=== PATIENT | male | born 1965 | race Caucasian/White ===

== ENCOUNTER 2017-11-03 15:58 | Emergency (ER) | payer SELFPAY ==
--- NOTE | 2017-11-03 16:28 | EDM.PDOC ---
ED HPI GENERAL MEDICAL PROBLEM - General Chief Complaint: General Stated Complaint: HIGH BLOOD Time Seen by Provider: 11/03/17 16:20 Source of Information: Reports: Patient History Limitations: Reports: No Limitations - History of Present Illness INITIAL COMMENTS - FREE TEXT/NARRATIVE: This patient is a 51 year old male that presents to the ER. Patient reports that for about 1 week having lightheadedness with standing. He reports his reason for ER visit is started last night with pressure in his head. He reports starts in the front and is generalized to top and to back of the head. The patient reports that he has had this before. He reports when he gets these, his BP is usually elevated. Patient reports taking his BP at home and it was 180/ 100. Patient arrives here, BP stable. The patient denies n, v, d, f, congestion , drainage, cough, neck pain, neck stiffness, vision changes, head injury, cp, soa, abd pain, urinary/bowel changes, rashes, edema. Patient denies unilateral weaknesses. Stroke score is 0. GCS is 15. Patient had increased in his BP meds about 2 weeks ago with PCP per patient. Onset Date: 11/02/17 Location: Reports: Head Quality: Reports: Pressure Severity: Mild Improves with: Reports: None Worsens with: Reports: None Associated Symptoms: Reports: Headaches. Denies: Confusion, Chest Pain, Cough, cough w sputum, Diaphoresis, Fever/Chills, Loss of Appetite, Malaise, Nausea/ Vomiting, Rash, Seizure, Shortness of Breath, Syncope, Weakness - Related Data Allergies Allergy/AdvReac Type Severity Reaction Status Date / Time No Known Allergies Allergy Verified 11/03/17 16:21 Home Meds: Home Meds Cetirizine [ZyrTEC] 10 mg PO DAILY 11/03/17 [History] Losartan Potassium [Cozaar] 100 mg PO DAILY 11/03/17 [History] atorvaSTATin [Lipitor] 40 mg PO BEDTIME 11/03/17 [History] metFORMIN HCl [Metformin HCl ER] 1,000 mg PO DAILY 11/03/17 [History] ED ROS GENERAL - Review of Systems Review Of Systems: See Below Constitutional: Reports: No Symptoms HEENT: Reports: No Symptoms. Denies: Sinus Problem Respiratory: Reports: No Symptoms. Denies: Shortness of Breath Cardiovascular: Reports: Blood Pressure Problem ("I usually get this pressure in my head when my blood pressure is up."), Lightheadedness (with standing. ). Denies: Chest Pain, Edema, Syncope Endocrine: Reports: No Symptoms GI/Abdominal: Reports: No Symptoms : Reports: No Symptoms Musculoskeletal: Reports: No Symptoms Skin: Reports: No Symptoms Neurological: Reports: Headache. Denies: Confusion, Dizziness, Numbness, Seizure, Syncope, Tingling, Tremors, Trouble Speaking, Difficulty Walking, Weakness, Change in Speech, Gait Disturbance Psychiatric: Reports: No Symptoms Hematologic/Lymphatic: Reports: No Symptoms Immunologic: Reports: No Symptoms ED EXAM, GENERAL - Physical Exam Exam: See Below Exam Limited By: No Limitations General Appearance: Alert, WD/WN, No Apparent Distress Eye Exam: Bilateral Eye: Normal Inspection, PERRL Ears: Normal External Exam, Normal Canal, Hearing Grossly Normal, Normal TMs Ear Exam: Bilateral Ear: Auricle Normal, Canal Normal, TM normal Nose: Normal Inspection, Normal Mucosa, No Blood Throat/Mouth: Normal Inspection, Normal Lips, Normal Teeth, Normal Gums, Normal Oropharynx, Normal Voice, No Airway Compromise Head: Atraumatic, Normocephalic Neck: Normal Inspection, Supple, Non-Tender, Full Range of Motion Respiratory/Chest: No Respiratory Distress, Lungs Clear, Normal Breath Sounds, No Accessory Muscle Use Cardiovascular: Normal Peripheral Pulses, Regular Rate, Rhythm, No Edema, No Gallop, No JVD, No Murmur, No Rub Peripheral Pulses: 2+: Carotid (L), Carotid (R), Radial (L), Radial (R), Posterior Tibial (L), Posterior Tibial (R) GI/Abdominal: Soft, Non-Tender, No Organomegaly, No Distention, No Abnormal Bruit, No Mass, Pelvis Stable (Male) Exam: Deferred Rectal (Males) Exam: Deferred Back Exam: Normal Inspection, Full Range of Motion Extremities: Normal Inspection, Normal Range of Motion, Non-Tender, No Pedal Edema, Normal Capillary Refill Neurological: Alert, Oriented, CN II-XII Intact, Normal Cognition, Normal Gait, No Motor/Sensory Deficits Psychiatric: Normal Affect, Normal Mood Skin Exam: Warm, Dry, Intact, Normal Color, No Rash Lymphatic: No Adenopathy EKG INTERPRETATION EKG Date: 11/03/17 Time: 16:16 Rhythm: NSR Rate (Beats/Min): 87 [place]: Normal P-Wave: Present QRS: Normal ST-T: Normal QT: Normal Comparison: NA - No Prior EKG Course - Vital Signs Last Recorded V/S: Last Vital Signs Temp 98.5 F 11/03/17 16:01 Pulse 88 11/03/17 16:01 Resp 18 11/03/17 16:01 BP 143/83 H 11/03/17 16:01 Pulse Ox 96 11/03/17 16:01 Orthostatic Blood Pressure [ 149/99 Standing] Orthostatic Blood Pressure [ 138/87 Sitting] Orthostatic Blood Pressure [ 145/96 Supine] - Orders/Labs/Meds Orders: Active Orders 24 hr Category Date Time Status Orthostatic Vital Signs [RC] ASDIRECTED Care 11/03/17 16:28 Active Head wo Cont [CT] Stat Exams 11/03/17 16:25 Taken Sodium Chloride 0.9% [Normal Saline] 1,000 ml Med 11/03/17 16:53 Active IV .BOLUS Medication Orders Sodium Chloride (Normal Saline) 1,000 mls @ 999 mls/hr IV .BOLUS ONE Stop: 11/03/17 17:53 Last Admin: 11/03/17 17:07 Dose: 999 mls/hr Labs: Laboratory Tests 11/03/17 11/03/17 11/03/17 Range/Units 16:25 16:25 16:25 WBC 6.9 (5.0-10.0) 10^3/uL RBC 5.22 (4.50-6.00) 10^6/uL Hgb 14.7 (14.0-18.0) g/dL Hct 43.3 (40.0-54.0) % MCV 83.0 (82.0-94.0) fL MCH 28.2 (27.0-32.0) pg MCHC 33.9 (33.0-38.0) g/dL RDW Coeff of Kim 12.7 (11.0-15.0) % Plt Count 201 (150-400) 10^3/uL Neut % (Auto) 62.3 (35-85) % Lymph % (Auto) 28.7 (10-55) % [place] % (Auto) 7.3 (0-16) % Eos % (Auto) 1.6 (0-5) % Baso % (Auto) 0.1 (0-3) % Neut # (Auto) 4.29 (1.80-7.00) 10^3/uL Lymph # (Auto) 1.98 (1.00-4.80) 10^3/uL [place] # (Auto) 0.50 (0.00-0.80) 10^3/uL Eos # (Auto) 0.11 (0.00-0.45) 10^3/uL Baso # (Auto) 0.01 10^3/uL Sodium 144 (136-145) mEq/L Potassium 4.2 (3.5-5.0) mEq/L Chloride 105 (98-106) mEq/L Carbon Dioxide 27 (21-32) mmol/L BUN 15 (7-18) mg/dL Creatinine 1.2 (0.7-1.3) mg/dL Est Cr Clr Drug Dosing 70.46 mL/min Estimated GFR (MDRD) > 60 (>=60) mL/min Glucose 102 H D (75-99) mg/dL Calcium 9.8 (8.4-10.1) mg/dL Total Bilirubin 0.5 (0.0-1.0) mg/dL AST 40 H (15-37) U/L ALT 75 (12-78) U/L Alkaline Phosphatase 33 L (46-116) U/L Creatine Kinase 130 (35-232) U/L Troponin I < 0.017 (0.00-0.06) ng/mL Total Protein 7.2 (6.4-8.2) g/dL Albumin 3.8 (3.4-5.0) g/dL Urine Color Yellow (YELLOW) Urine Appearance Clear (CLEAR) Urine pH 7.0 (4.5-8.0) Ur Specific [place] 1.020 (1.003-1.020) Urine Protein Negative (NEGATIVE) mg/dL Urine Glucose (UA) Negative (NEGATIVE) mg/dL Urine Ketones Negative (NEGATIVE) mg/dL Urine Occult Blood Negative (NEGATIVE) Urine Nitrite Negative (NEGATIVE) Urine Bilirubin Negative (NEGATIVE) Urine Urobilinogen 1.0 (0.2-1.0) EU/dL Ur Leukocyte Esterase Negative (NEGATIVE) Urine RBC Not seen (0-5) /HPF Urine WBC Not seen (0-5) /HPF Meds: Medications Generic Name Dose Route Start Last Admin Trade Name Donna PRN Reason Stop Dose Admin Sodium Chloride 1,000 mls @ 999 mls/hr 11/03/17 16:53 11/03/17 17:07 Normal Saline IV 11/03/17 17:53 999 mls/hr .BOLUS ONE Administration - Radiology Interpretation Free Text/Narrative:: Head Ct: Negative. No acute findings. CT Results Date: 11/03/17 CT Results Time: 17:01 Departure - Departure Time of Disposition: 17:04 Disposition: Home, Self-Care 01 Condition: Fair Clinical Impression: Lightheaded Headache Qualifiers: Headache type: other headache syndrome Qualified Code(s): G44.89 - Other headache syndrome - Discharge Information Instructions: General Headache Without Cause, Dehydration, Adult, [id number] Forms: ED Department Discharge Additional Instructions: Followup with your primary care provider Return to the ER for worsening of condition or any emergent concerns Increase fluids Stay out of heat Tylenol for headache - My Orders Last 24 Hours: My Active Orders 11/03/17 16:25 Head wo Cont [CT] Stat 11/03/17 16:28 Orthostatic Vital Signs [RC] ASDIRECTED 11/03/17 16:53 Sodium Chloride 0.9% [Normal Saline] 1,000 ml IV .BOLUS - Assessment/Plan Last 24 Hours: My Active Orders 11/03/17 16:25 Head wo Cont [CT] Stat 11/03/17 16:28 Orthostatic Vital Signs [RC] ASDIRECTED 11/03/17 16:53 Sodium Chloride 0.9% [Normal Saline] 1,000 ml IV .BOLUS Plan: PLEASE SEE RN NOTE FOR PFSH.
[2017-11-03] MEDS ORDERED: Sodium Chloride 0.9% 1,000 ML IV ONE (16:53)
[2017-11-03 17:03] LABS: CHLORIDE,CL 105 mEq/L (98-106); SODIUM,NA 144 mEq/L (136-145)
== END 2017-11-03 18:40 | disposition home or self-care (01) ==
LOC: CC.ED 15:58
DX: G44.89 Other headache syndrome (principal); R42 Dizziness and giddiness; Z79.899 Other long term (current) drug therapy
CPT/HCPCS: 36415; 70450; 80053; 81001; 82550; 84484; 85025; 96360; 99284; J7030

== ENCOUNTER 2019-11-21 22:32 | Emergency (ER) | payer SELFPAY ==
[2019-11-21] MEDS ORDERED: Aspirin 81 MG Tab.Chew PO ONE (22:46)
[2019-11-21] MEDS: Nitroglycerin 0.4 MG Tab.SL SL PRN ×2 (22:52→23:13)
--- NOTE | 2019-11-21 22:57 | EDM.PDOC ---
ED HPI GENERAL MEDICAL PROBLEM - General Chief Complaint: Upper Extremity Injury/Pain Stated Complaint: shoulder pain Time Seen by Provider: 11/21/19 22:33 Source of Information: Reports: Patient History Limitations: Reports: No Limitations - History of Present Illness INITIAL COMMENTS - FREE TEXT/NARRATIVE: This patient is a 54 year old male that presents to the ER. Patient reports that about 1 week ago started having right shoulder burning that radiated into his right "shoulder blade". Patient reports the pain has been constant, but OTC Tylenol has helped. He reports that 4 nights ago he started having right chest, left chest, and right neck, jaw burning as well. He reports that he laid down with the pain and fell asleep with it. He reports that when he woke up the next morning, the burning pain in the bilateral chest and jaw was gone. He reports though the right shoulder pain and shoulder blade was not. He reports that today it progressively became worse and had the burning again to the right chest, right shoulder, right shoulder blade, right neck/jaw. He reports it was a pain of 8/10. He reports taking about 1 hour relief captain Tylenol and Motrin and the pain is now a 5/10. The patient does report occasional drinker, denies smoking, reports dip. he is a diabetic with history of hyperlipidemia and htn. Patient does report having chronic left shoulder pain, but reports this does not feel like this at all. Patient reports his last stress test was about 5-6 years ago. Onset Date: 11/14/19 Duration: Week(s): (1), Constant, Getting Worse Location: Reports: Face, Neck, Chest, Back, Upper Extremity, Right Quality: Reports: Burning Severity: Moderate Improves with: Reports: Medication (From an 8/10 to a 5/10 after taking Tylenol and Motrin) Worsens with: Reports: None. Denies: Breathing, Movement Associated Symptoms: Reports: Chest Pain. Denies: Confusion, Cough, cough w sputum, Diaphoresis, Fever/Chills, Headaches, Loss of Appetite, Malaise, Nausea/Vomiting, Rash, Seizure, Shortness of Breath, Syncope, Weakness Treatments FORMWORK [employer]PENTER: Reports: Acetaminophen, NSAIDS Right Upper Chest Pain Score (Numeric/FACES): 6 - Related Data Allergies Allergy/AdvReac Type Severity Reaction Status Date / Time seasonal Allergy Other Uncoded 11/21/19 22:55 Home Meds: Home Meds atorvaSTATin [Lipitor] 40 mg PO BEDTIME 11/03/17 [History] metFORMIN HCl [Metformin HCl ER] 1,000 mg PO DAILY 11/03/17 [History] Loratadine [Claritin] 10 mg PO DAILY 11/21/19 [History] Losartan/Hydrochlorothiazide [Losartan-HCTZ 100-25 MG] 1 tab PO DAILY 11/21/19 [History] Past Medical History HEENT History: Reports: Allergic Rhinitis, Sinusitis Cardiovascular History: Reports: High Cholesterol, Hypertension Gastrointestinal History: Reports: Cholelithiasis, GERD Endocrine/Metabolic History: Reports: Diabetes, Type II - Past Surgical History GI Surgical History: Reports: Cholecystectomy, Colonoscopy, EGD Social & Family History - Family History Family Medical History: Noncontributory - Caffeine Use Caffeine Use: Reports: Coffee, Tea Review of Systems - Review of Systems Review Of Systems: See Below Constitutional: Reports: No Symptoms Eyes: Reports: No Symptoms Ears: Reports: No Symptoms Nose: Reports: No Symptoms Mouth/Throat: Reports: No Symptoms Respiratory: Reports: No Symptoms Cardiovascular: Reports: Chest Pain (right and left), Other (right shoulder pain, right shoulder blade pain. Right neck and right jaw pain). Denies: Palpitations, Syncope GI/Abdominal: Denies: Abdominal Pain, Diarrhea, Nausea, Vomiting Genitourinary: Reports: No Symptoms Musculoskeletal: Reports: No Symptoms Skin: Reports: No Symptoms Neurological: Reports: No Symptoms Psychiatric: Reports: No Symptoms ED EXAM, GENERAL - Physical Exam Exam: See Below Exam Limited By: No Limitations General Appearance: Alert, WD/WN, No Apparent Distress Eye Exam: Bilateral Eye: Normal Inspection, PERRL Ears: Normal External Exam, Normal Canal, Hearing Grossly Normal, Normal TMs Ear Exam: Bilateral Ear: Auricle Normal, Canal Normal, TM normal Nose: Normal Inspection, Normal Mucosa, No Blood Throat/Mouth: Normal Inspection, Normal Lips, Normal Teeth, Normal Gums, Normal Oropharynx, Normal Voice, No Airway Compromise Head: Atraumatic, Normocephalic Neck: Normal Inspection, Supple, Non-Tender, Full Range of Motion. No: Limited Range of Motion, Tender Lateral, Tender Midline Respiratory/Chest: No Respiratory Distress, Lungs Clear, Normal Breath Sounds, No Accessory Muscle Use, Chest Non-Tender Cardiovascular: Normal Peripheral Pulses, Regular Rate, Rhythm, No Edema, No Gallop, No JVD, No Murmur, No Rub Peripheral Pulses: 2+: Radial (L), Radial (R), Posterior Tibial (L), Posterior Tibial (R) GI/Abdominal: Normal Bowel Sounds, Soft, Non-Tender, No Abnormal Bruit Back Exam: Normal Inspection, Full Range of Motion. No: CVA Tenderness (L), CVA Tenderness (R), Decreased Range of Motion, Muscle Spasm, Paraspinal Tenderness, Vertebral Tenderness Extremities: Normal Inspection, Normal Range of Motion, Non-Tender, No Pedal Edema, Normal Capillary Refill, Other (I can not reproduce pain). No: Limited Range of Motion Neurological: Alert, Oriented Psychiatric: Normal Affect, Normal Mood Skin Exam: Warm, Dry, Intact, Normal Color, No Rash Lymphatic: No Adenopathy EKG INTERPRETATION EKG Date: 11/21/19 Time: 22:57 Rate (Beats/Min): 109 AK/PQ Interval: Deep Q waves lead 3. V1-V3. New V2, V3. Comparison: Change From Previous EKG (New Q waves V2, V3.) Course - Vital Signs Last Recorded V/S: Last Vital Signs Temp 98.7 F 11/21/19 22:32 Pulse 103 H 11/21/19 23:18 Resp 16 11/21/19 22:32 BP 147/65 H 11/21/19 23:18 Pulse Ox 98 11/21/19 22:32 - Orders/Labs/Meds Orders: Active Orders 24 hr Category Date Time Status Chest 2V [CR] Stat Exams 11/21/19 22:35 Taken Nitroglycerin [Nitrostat] Med 11/21/19 22:46 Active 0.4 mg SL Q5M PRN Medication Orders Nitroglycerin (Nitrostat) 0.4 mg SL Q5M PRN PRN Reason: Chest Pain Last Admin: 11/21/19 23:13 Dose: 0.4 mg Documented by: Admin: 11/21/19 22:52 Dose: 0.4 mg Documented by: STACEY Labs: Laboratory Tests 11/21/19 11/21/19 11/21/19 Range/Units 22:34 22:34 22:35 WBC 7.3 (5.0-10.0) 10^3/uL RBC 5.04 (4.50-6.00) 10^6/uL Hgb 14.4 (14.0-18.0) g/dL Hct 42.4 (40.0-54.0) % MCV 84.1 (82.0-94.0) fL MCH 28.6 (27.0-32.0) pg MCHC 34.0 (33.0-38.0) g/dL RDW Coeff of Kim 12.3 (11.0-15.0) % Plt Count 182 (150-400) 10^3/uL Neut % (Auto) 55.0 (35-85) % Lymph % (Auto) 36.5 (10-55) % [place] % (Auto) 6.0 (0-16) % Eos % (Auto) 2.2 (0-5) % Baso % (Auto) 0.3 (0-3) % Neut # (Auto) 4.03 (1.80-7.00) 10^3/uL Lymph # (Auto) 2.67 (1.00-4.80) 10^3/uL [place] # (Auto) 0.44 (0.00-0.80) 10^3/uL Eos # (Auto) 0.16 (0.00-0.45) 10^3/uL Baso # (Auto) 0.02 10^3/uL PT 10.4 (9.7-12.3) SEC INR 1.03 (0.92-1.18) D-Dimer, Quantitative (0.00-0.50) Sodium 140 (136-145) mEq/L Potassium 3.5 (3.5-5.0) mEq/L Chloride 103 (98-106) mEq/L Carbon Dioxide 26 (21-32) mmol/L BUN 20 H (7-18) mg/dL Creatinine 1.3 (0.7-1.3) mg/dL Est Cr Clr Drug Dosing TNP Estimated GFR (MDRD) 58 L (>=60) mL/min Glucose 237 H D (75-99) mg/dL Calcium 9.6 (8.4-10.1) mg/dL Total Bilirubin 0.5 (0.0-1.0) mg/dL AST 27 (15-37) U/L ALT 54 (12-78) U/L Alkaline Phosphatase 35 L (46-116) U/L Lactate Dehydrogenase 150 (100-190) U/L Creatine Kinase 95 (35-232) U/L Troponin I < 0.017 (0.00-0.06) ng/mL Total Protein 7.4 (6.4-8.2) g/dL Albumin 3.8 (3.4-5.0) g/dL 11/21/19 Range/Units 22:57 WBC (5.0-10.0) 10^3/uL RBC (4.50-6.00) 10^6/uL Hgb (14.0-18.0) g/dL Hct (40.0-54.0) % MCV (82.0-94.0) fL MCH (27.0-32.0) pg MCHC (33.0-38.0) g/dL RDW Coeff of Kim (11.0-15.0) % Plt Count (150-400) 10^3/uL Neut % (Auto) (35-85) % Lymph % (Auto) (10-55) % [place] % (Auto) (0-16) % Eos % (Auto) (0-5) % Baso % (Auto) (0-3) % Neut # (Auto) (1.80-7.00) 10^3/uL Lymph # (Auto) (1.00-4.80) 10^3/uL [place] # (Auto) (0.00-0.80) 10^3/uL Eos # (Auto) (0.00-0.45) 10^3/uL Baso # (Auto) 10^3/uL PT (9.7-12.3) SEC INR (0.92-1.18) D-Dimer, Quantitative 0.24 (0.00-0.50) Sodium (136-145) mEq/L Potassium (3.5-5.0) mEq/L Chloride (98-106) mEq/L Carbon Dioxide (21-32) mmol/L BUN (7-18) mg/dL Creatinine (0.7-1.3) mg/dL Est Cr Clr Drug Dosing Estimated GFR (MDRD) (>=60) mL/min Glucose (75-99) mg/dL Calcium (8.4-10.1) mg/dL Total Bilirubin (0.0-1.0) mg/dL AST (15-37) U/L ALT (12-78) U/L Alkaline Phosphatase (46-116) U/L Lactate Dehydrogenase (100-190) U/L Creatine Kinase (35-232) U/L Troponin I (0.00-0.06) ng/mL Total Protein (6.4-8.2) g/dL Albumin (3.4-5.0) g/dL Meds: Medications Generic Name Dose Route Start Last Admin Trade Name Freq PRN Reason Stop Dose Admin Nitroglycerin 0.4 mg 11/21/19 22:46 11/21/19 23:13 Nitrostat SL 0.4 mg Q5M PRN Administration Chest Pain Discontinued Medications Generic Name Dose Route Start Last Admin Trade Name Freq PRN Reason Stop Dose Admin Aspirin 324 mg 11/21/19 22:46 11/21/19 22:51 Aspirin PO 11/21/19 22:47 324 mg ONETIME ONE Administration Nitroglycerin 1 gm 11/21/19 23:39 11/22/19 00:32 Nitro-Bid 2% TOP 11/21/19 23:40 1 gm ONETIME ONE Administration - Radiology Interpretation Free Text/Narrative:: CXR: No infiltrate, no pulmonary edema, no cardiac enlargement. - Re-Assessments/Exams Free Text/Narrative Re-Assessment/Exam: 11/21/19 23:57 I spoke to the patient about his EKG changes and his presentation and his history. I also had [facility] review the EKG to ensure Q wave changes from previous. They agree and suggest urgent stress. Patient reports his pain after the 1 Nitro is 2/10, and after a second nitro is now a 0/10. I called and spoke to Dr. bailey the hospitalist about this patient, have faxed the EKG for viewing. One call will call me back once EKG is reviewed. I calculate a Heart Score of 5. History is moderately suspicious +1, ekg changes +1, age +1, risk factors of dip, obesity, htn, hyperlipidemia, etoh, dm +2, = 5. 11/22/19 00:[address] [facility], they have accepted the transfer. Will transfer this patient. 11/22/19 00:38 This patient is being transferred to [facility]. Risk vs benefits explained to the patient. The risk of transfer is mvc, , [place], worsening of pain. The risks of staying in [place] is no optical glass silverer, no stress test for days, no cardiac cath if needed, . The benefits of transfer are optical glass silverer, cardiac intervention if needed, cardiology stress, higher level of care. The benefits of staying in [place] is close to home. Departure - Departure Time of Disposition: 00:41 Disposition: DC/Tfer to Acute Hospital 02 Condition: Fair Clinical Impression: Unstable angina, Abnormal EKG - Discharge Information *PRESCRIPTION DRUG MONITORING PROGRAM REVIEWED*: Not Applicable *COPY OF PRESCRIPTION DRUG MONITORING REPORT IN PATIENT JAILENE: Not Applicable Referrals: PCP,None [Primary Care Provider] - Forms: ED Department Discharge Sepsis Event Note (ED) - Focused Exam Vital Signs: Vital Signs Temp Pulse Pulse Resp BP BP Pulse Ox 11/21/19 23:18 103 H 147/65 H 11/21/19 23:13 103 H 103 H 137/76 137/76 11/21/19 22:57 84 133/76 11/21/19 22:52 88 88 150/74 H 150/74 H 11/21/19 22:32 98.7 F 98 16 146/65 H 98 - My Orders Last 24 Hours: My Active Orders 11/21/19 22:35 Chest 2V [CR] Stat 11/21/19 22:46 Nitroglycerin [Nitrostat] 0.4 mg SL Q5M PRN - Assessment/Plan Last 24 Hours: My Active Orders 11/21/19 22:35 Chest 2V [CR] Stat 11/21/19 22:46 Nitroglycerin [Nitrostat] 0.4 mg SL Q5M PRN Plan: PLEASE SEE RN NOTE FOR PFSH
[2019-11-21 23:10] LABS: CHLORIDE,CL 103 mEq/L (98-106); SODIUM,NA 140 mEq/L (136-145)
[2019-11-21] MEDS ORDERED: Nitroglycerin 2% Oint 1 GM UD Packet TOP ONE (23:39)
== END 2019-11-22 02:05 ==
LOC: CC.ED 22:32
DX: I20.0 Unstable angina (principal); E78.00 Pure hypercholesterolemia, unspecified; I10 Essential (primary) hypertension; E11.9 Type 2 diabetes mellitus without complications; Z79.84 Long term (current) use of oral hypoglycemic drugs; R94.31 Abnormal electrocardiogram [ECG] [EKG]; Z91.048 Other nonmedicinal substance allergy status
CPT/HCPCS: 36415; 71046; 80053; 82550; 83615; 84484; 85025; 85379; 85610; 93005; 99285-25; A9270-GY

== ENCOUNTER → 2020-01-09 | Day surgery (SDC) | payer SELFPAY ==
[~2020-01-09] MED LIST: Ketamine 200 MG/20 ML MDV IV ONE; Propofol 200 MG/20 ML SDV IV ONE; fentaNYL 100 MCG/2 ML SDV IV ONE
[2020-01-09] MEDS: Lactated Ringers 1,000 ML IV SCH (07:02)
--- NOTE | 2020-01-09 10:02 | OR ---
DATE OF OPERATION: 01/09/2020 PREOPERATIVE DIAGNOSIS: 1. ATYPICAL CHEST PAIN WITH HISTORY OF GASTROESOPHAGEAL REFLUX DISEASE. 2. ABDOMINAL PAIN WITH ALTERED BOWEL HABITS. POSTOPERATIVE DIAGNOSIS: 1. ATYPICAL CHEST PAIN WITH HISTORY OF GASTROESOPHAGEAL REFLUX DISEASE. 2. ABDOMINAL PAIN WITH ALTERED BOWEL HABITS. SURGEON: Constantino Tang MD PROCEDURE: 1. ESOPHAGOGASTRODUODENOSCOPY WITH BIOPSIES X3, MINE. 2. FULL-LENGTH COLONOSCOPY WITH FORCEPS POLYPECTOMY X1. ANESTHESIA: MAC. COMPLICATIONS: None. SPECIMEN: 1. Duodenal bulb biopsy x1. 2. Antral biopsy x2. 3. Antral MINE. 4. Tubular adenoma, splenic flexure. FINDINGS: 1. Full-length EGD. 2. Mild and active duodenitis, gastritis. 3. Spontaneous GERD without esophagitis. 4. Full-length colonoscopy. 5. Small tubular adenoma less than 0.5 cm, splenic flexure. RECOMMENDATIONS: Ongoing medical followup, routine colonoscopy, followup in 5 years. INDICATIONS: The patient had a recent transfer to a tertiary facility for atypical chest pain. He has been having some ongoing issues with reflux. We elected to proceed with EGD because of abdominal pain and altered bowel habits in the form of constipation, and the fact that he had not had a colonoscopy in almost 10 years, we proceeded with a colonoscopy as well. DESCRIPTION OF PROCEDURE: The patient was prepped and draped, placed in a left lateral decubitus position. A lubricated Olympus gastroscope was inserted over a bit, advanced to the cricopharyngeus area and easily intubated into the esophagus. The esophageal lining was benign in its entire course. The Z-line was crisp at 40 cm. There was no hernia. Some spontaneous reflux seen, but no distal esophagitis, stricturing, ulceration, or Farr changes. The scope was advanced into the stomach, through the pylorus, and into the second portion of the duodenum, this was benign. The duodenal bulb had some mild active duodenitis, a biopsy was taken. The scope was brought back into the stomach and retroflexed. The upper fundus and cardia were unremarkable. Upon straightening, the rest of the fundus was benign. Most of the antrum had some very mild, but active gastritis. No ulcerations or erosions. Two biopsies were taken along with a CLOtest. Air was then suctioned from the stomach and the scope removed without complication. A lubricated Olympus colonoscope was then inserted and then easily advanced to the cecum. Direct visualization of the ileocecal valve and appendiceal orifice was accomplished. The bowel prep was fine. Upon withdrawal of the scope, the cecum, ascending, and transverse colons were completely unremarkable. Right at the splenic flexure, the patient had a small tubular adenoma removed easily with forceps biopsy x2, as it was slightly flat. The rest of the descending colon was unremarkable. Throughout the sigmoid and rectosigmoid area, I could find no other polyps, masses, ulceration, or bleeding sites. No vascular abnormalities or signs of colitis. There were no diverticula. Rectal vault was benign. Retroflexion of scope in the rectum showed no anal lesions. Air was suctioned, scope removed without complication. [id number]/CELESTINA /[id number]
== END ==
LOC: CC.SDS 06:41
PROVIDERS: ATTEND Family Medicine
DX: D12.3 Benign neoplasm of transverse colon (principal); K31.89 Other diseases of stomach and duodenum; K29.90 Gastroduodenitis, unspecified, without bleeding; K21.9 Gastro-esophageal reflux disease without esophagitis; R51 Headache; E78.5 Hyperlipidemia, unspecified; I10 Essential (primary) hypertension; E11.9 Type 2 diabetes mellitus without complications; Z79.84 Long term (current) use of oral hypoglycemic drugs; Z79.899 Other long term (current) drug therapy
CPT/HCPCS: 00813; 87081; J2704; J3010; J7120

== ENCOUNTER 2023-09-29 02:43 | Emergency (ER) | payer BC ==
[2023-09-29] MEDS: Cephalexin 500 MG Cap PO ONE (03:11)
== END 2023-09-29 03:16 | disposition home or self-care (01) ==
LOC: CC.ED 02:43
DX: L03.114 Cellulitis of left upper limb (principal); E78.00 Pure hypercholesterolemia, unspecified; I10 Essential (primary) hypertension; K21.9 Gastro-esophageal reflux disease without esophagitis; F17.210 Nicotine dependence, cigarettes, uncomplicated; E11.9 Type 2 diabetes mellitus without complications; Z79.84 Long term (current) use of oral hypoglycemic drugs; Z86.19 Personal history of other infectious and parasitic diseases; Z90.49 Acquired absence of other specified parts of digestive tract; Z79.899 Other long term (current) drug therapy
CPT/HCPCS: 99283; A9270